=== PATIENT | female | born 1960 | race African-American/Black ===

== ENCOUNTER 2017-07-09 08:41 | Observation (INO) ==
[2017-07-09] MEDS ORDERED: SODIUM CHLORIDE 0.9% 500 ML IV STA (09:12)
[2017-07-09] MEDS ORDERED: ceFAZolin 1,000 MG in SYRINGE 1 EACH IV ONE (09:35)
[2017-07-09] MEDS ORDERED: FAMOTIDINE 20 MG/2 ML VIAL IV STA (09:36)
[2017-07-09 09:44] LABS: Basophils % 0.7 % (0.0-0.8); Eosinophils # 0.2 10*3/uL (0.0-0.87); Eosinophils % 2.9 % (0.00-10.9); Hematocrit 37.6 VOL% (35.7-47.0); Hemoglobin 11.6 GM/DL (12.0-16.0); Immature Granulocytes % 0.4 %; Immature Granulocytes Absolute 0.02 #; Lymphocytes # 1.4 10*3/uL (1.4-4.0); Lymphocytes % 25.4 % (21.3-54.2); Mean Corpuscular HGB Conc 30.9 GM/DL (32-36); Mean Corpuscular Hemoglobin 25 PG (27-34); Mean Corpuscular Volume 80.9 FL (87-102); Mean Platelet Volume 9.9 FL (9.6-12.0); Monocytes # 0.7 10*3/uL (0.11-0.8); Monocytes % 12.8 % (1.7-12.7); Neutrophils # 3.2 10*3/uL (1.4-7.4); Neutrophils % 57.8 % (38.7-73.9); Platelet Count 245 T/CUMM (130-400); Red Blood Count 4.65 MC/CUMM (3.8-5.5); Red Cell Distribution Width 14.2 % (9.3-17.3); White Blood Count 5.6 T/CUMM (4-12)
[2017-07-09] MEDS ORDERED: HEPARIN 5,000 UNIT/1 ML VIAL ONE (09:44)
[2017-07-09] MEDS ORDERED: BUPIVACAINE 0.25% 50 ML VIAL ONE (09:44)
[2017-07-09 10:01] LABS: Calcium 7.3 MG/DL (8.5-10.1); Osmolality,Calculated 278.5 MOS/KG (273-304); Potassium 3.5 MMOL/L (3.5-5.1)
[2017-07-09] MEDS ORDERED: ONDANSETRON 4 MG/2 ML VIAL IV PRN ×2 (12:06→12:18)
[2017-07-09] MEDS ORDERED: MORPHINE 2 MG/1 ML SYRINGE IV PRN (12:06)
[2017-07-09] MEDS ORDERED: MIDAZOLAM 2 MG/2 ML VIAL ONE (12:10)
[2017-07-09] MEDS ORDERED: PROPOFOL 200 MG/20 ML VIAL IV ONE (12:10)
[2017-07-09] MEDS ORDERED: fentaNYL 100 MCG/2 ML VIAL ONE (12:10)
[2017-07-09] MEDS ORDERED: SEVOFLURANE 1 UNIT/15 MINUTE INH ONE (12:10)
[2017-07-09] MEDS ORDERED: ePHEDrine 50 MG/ML AMP ONE (12:11)
[2017-07-09] MEDS ORDERED: DEXAMETHASONE 10 MG/1 ML VIAL ONE (12:11)
[2017-07-09] MEDS ORDERED: LABETALOL 100 MG/20 ML VIAL IV ONE (12:11)
[2017-07-09] MEDS ORDERED: SCOPOLAMINE 1.5 MG PATCH TRANSDERM ONE (12:11)
[2017-07-09] MEDS ORDERED: SUCCINYLCHOLINE 200 MG/10 ML VIAL ONE (12:12)
[2017-07-09] MEDS ORDERED: MORPHINE 10 MG/1 ML VIAL ONE (12:16)
[2017-07-09] MEDS ORDERED: ONDANSETRON 4 MG/2 ML VIAL ONE (12:16)
[2017-07-09] MEDS: MORPHINE 10 MG/1 ML VIAL IV PRN ×2 (12:20→12:49)
[2017-07-09] MEDS ORDERED: cloNIDine 0.1 MG TABLET PO PRN (21:00)
[2017-07-09] MEDS: METOPROLOL TARTRATE 50 MG TABLET PO SCH (21:27)
[2017-07-09] MEDS: MYCOPHENOLATE MOFETIL 250 MG CAPSULE PO SCH (21:27)
[2017-07-09] MEDS: TACROLIMUS 0.5 MG CAPSULE PO SCH (21:27)
[2017-07-09] MEDS: LOSARTAN 50 MG TABLET PO SCH (21:27)
[2017-07-10] MEDS: ASPIRIN EC 81 MG TABLET PO SCH (09:34)
[2017-07-10] MEDS: METOPROLOL TARTRATE 50 MG TABLET PO SCH ×2 (09:37→21:08)
[2017-07-10] MEDS: TACROLIMUS 0.5 MG CAPSULE PO SCH ×3 (09:39→21:08)
[2017-07-10] MEDS: MYCOPHENOLATE MOFETIL 250 MG CAPSULE PO SCH ×2 (09:49→21:08)
[2017-07-10] MEDS: LOSARTAN 50 MG TABLET PO SCH ×2 (10:06→14:12)
[2017-07-10] MEDS ORDERED: diphenhydrAMINE CAP 25 MG CAPSULE PO PRN (21:16)
[2017-07-11] MEDS: TACROLIMUS 0.5 MG CAPSULE PO SCH (08:35)
[2017-07-11] MEDS: ASPIRIN EC 81 MG TABLET PO SCH (08:36)
[2017-07-11] MEDS: METOPROLOL TARTRATE 50 MG TABLET PO SCH (08:36)
[2017-07-11] MEDS: MYCOPHENOLATE MOFETIL 250 MG CAPSULE PO SCH (08:36)
[2017-07-11 11:14] VITALS: BP 140/80
[2017-07-11] MEDS: LOSARTAN 50 MG TABLET PO SCH (13:22)
== END 2017-07-11 16:23 | disposition home or self-care (01) ==
LOC: N.ED 08:41 → N.3E 08:41
PROVIDERS: ADMIT Surgery; ATTEND Surgery